=== PATIENT | male | born 1970 | race African-American/Black ===

== ENCOUNTER 2019-04-28 12:16 | Inpatient (IN) | payer BC ==
[~2019-04-28] VITALS: Ht 165.1 cm; Wt 84.8 kg
[~2019-04-28 12:16] MED LIST: CEPH-569
[2019-04-28] MEDS ORDERED: FUROSEMIDE 20MG/2ML VIAL IVP ONE (13:45)
[2019-04-28 13:59] LABS: MEAN CORPUSCULAR HEMOGLOBIN 22.9 pg (28.0-32.0); MEAN CORPUSCULAR VOLUME 76.2 fL (80.0-94.0); PLATELET 617 x1000/uL (130-400); RED BLOOD CELL COUNT 2.55 mill/uL (4.7-6.1); RED CELL DISTRIBUTION WIDTH 18.3 % (11.6-14.6)
[2019-04-28 14:03] LABS: HEMATOCRIT. 19.4 % (42.0-52.0); HEMOGLOBIN. 5.8 g/dL (14.0-18.0)
[2019-04-28 14:08] LABS: INR 1.3; PROTHROMBIN TIME 13.1 sec (9.6-11.0)
[2019-04-28 14:29] LABS: CHLORIDE 101 mEq/L (98-107)
[2019-04-28 14:39] LABS: ETHANOL BLOOD < 10 mg/dL
[2019-04-28 14:46] LABS: HEPATITIS B SURFACE AB 32.1 mIU/mL
[2019-04-28 14:49] LABS: PLATELET ESTIMATE INCREASED
[2019-04-28 14:57] LABS: HEPATITIS B SURFACE ANTIGEN NEGATIVE
[2019-04-28] MEDS ORDERED: CLONIDINE 0.1MG TABLET PO PRN (21:30)
[2019-04-28] MEDS ORDERED: DOCUSATE SODIUM 100MG CAPSULE PO PRN (21:30)
[2019-04-28] MEDS ORDERED: ONDANSETRON HCL 4MG/2ML INJ IV PRN (21:30)
[2019-04-28] MEDS ORDERED: NA PHOS,M-B/NA PHOS,DI-BA ENEMA 118ML PR PRN (21:30)
[2019-04-28 22:20] VITALS: BP 117/78
[2019-04-28 23:43] LABS: HEMOGLOBIN 6.4 g/dL (14.0-18.0); INR 1.3; PROTHROMBIN TIME 13.6 sec (9.6-11.0)
[2019-04-28 23:44] LABS: HEMATOCRIT 20.6 % (42.0-52.0)
[2019-04-29] VITALS (14 sets, daily range): BP systolic 114–129; BP diastolic 70–87
[2019-04-29] MEDS: FUROSEMIDE 40MG/4ML VIAL IV SCH ×2 (00:54→09:58)
[2019-04-29] MEDS: ZOLPIDEM TARTRATE 5MG TABLET PO PRN ×2 (00:55→21:40)
[2019-04-29] MEDS: HYDROCODONE/ACETAMINOPHEN 5/325MG TABLET PO PRN ×2 (00:55→21:41)
[2019-04-29 07:18] LABS: CHLORIDE 104 mEq/L (98-107)
[2019-04-29 10:12] LABS: HEMATOCRIT. 22.7 % (42.0-52.0); HEMOGLOBIN. 7.2 g/dL (14.0-18.0); MEAN CORPUSCULAR HEMOGLOBIN 24.6 pg (28.0-32.0); MEAN PLATELET VOLUME 7.2 fl (7.4-10.4); PLATELET 551 x1000/uL (130-400); RED BLOOD CELL COUNT 2.91 mill/uL (4.7-6.1); RED CELL DISTRIBUTION WIDTH 19.3 % (11.6-14.6)
[2019-04-29 10:23] LABS: INR 1.3; PROTHROMBIN TIME 13.1 sec (9.6-11.0)
[2019-04-29 13:24] LABS: PLATELET ESTIMATE INCREASED
[2019-04-29 16:25] LABS: HEMATOCRIT. 22.8 % (42.0-52.0); MEAN CORPUSCULAR VOLUME 78.3 fL (80.0-94.0); MEAN PLATELET VOLUME 7.5 fl (7.4-10.4); PLATELET 505 x1000/uL (130-400); RED BLOOD CELL COUNT 2.91 mill/uL (4.7-6.1); RED CELL DISTRIBUTION WIDTH 19.6 % (11.6-14.6)
[2019-04-29 19:42] LABS: PLATELET ESTIMATE INCREASED
[2019-04-29 20:09] LABS: HEMATOCRIT 25.4 % (42.0-52.0)
[2019-04-29] MEDS ORDERED: IOHEXOL-300 100 ML BOTTLE ONE (21:52)
[2019-04-30 00:05] VITALS: BP 99/78
[2019-04-30 04:00] VITALS: BP 122/83
[2019-04-30 08:00] VITALS: BP 116/83
[2019-04-30] MEDS: FERROUS SULFATE 325MG TABLET PO SCH ×3 (08:30→18:20)
[2019-04-30] MEDS: FUROSEMIDE 40MG/4ML VIAL IV SCH (08:52)
[2019-04-30] MEDS: HYDROCODONE/ACETAMINOPHEN 5/325MG TABLET PO PRN ×2 (11:22→21:23)
[2019-04-30 12:00] VITALS: BP 119/78
[2019-04-30] MEDS ORDERED: SODIUM BICARBONATE 4% (2.4MEQ) 5ML VIAL IV ONE (12:10)
[2019-04-30] MEDS ORDERED: LIDOCAINE HCL 1% 20ML VIAL (Pyxis) INJ ONE (12:10)
[2019-04-30 16:00] VITALS: BP 115/81
[2019-04-30] MEDS: ZOLPIDEM TARTRATE 5MG TABLET PO PRN (21:22)
[2019-04-30] MEDS: ACETAMINOPHEN 325MG TABLET PO PRN (21:32)
[2019-05-01] VITALS: BP 105/69
[2019-05-01 06:07] LABS: CHLORIDE 100 mEq/L (98-107)
[2019-05-01 06:16] LABS: HEMOGLOBIN. 7.2 g/dL (14.0-18.0); MEAN CORPUSCULAR HEMOGLOBIN 24.9 pg (28.0-32.0); MEAN CORPUSCULAR VOLUME 79.3 fL (80.0-94.0); MEAN PLATELET VOLUME 7.5 fl (7.4-10.4); PLATELET 451 x1000/uL (130-400); RED CELL DISTRIBUTION WIDTH 20.6 % (11.6-14.6)
[2019-05-01] MEDS ORDERED: POTASSIUM CHLORIDE 20MEQ TABLET SR PO NR (08:15)
[2019-05-01 08:46] VITALS: BP 106/52
[2019-05-01] MEDS: ACETAMINOPHEN 325MG TABLET PO PRN (08:48)
[2019-05-01] MEDS: FERROUS SULFATE 325MG TABLET PO SCH (08:48)
[2019-05-01] MEDS: FUROSEMIDE 40MG/4ML VIAL IV SCH (08:48)
[2019-05-01 10:41] VITALS: BP 106/52
[2019-05-01 10:54] LABS: NUCLEATED RED BLOOD CELLS 1 /100 WBC
[2019-05-01 10:55] LABS: PLATELET ESTIMATE INCREASED
== END 2019-05-01 12:46 | disposition home or self-care (01) | DRG 811 ==
LOC: ER 12:16 → EDBEDREQ 15:17 → ENRESERV 21:05 → 7WST 22:15
PROVIDERS: ADMIT Hospitalist; ATTEND Hospitalist
PROC: 30233N1 Transfusion of Nonautologous Red Blood Cells into Peripheral Vein, Percutaneous Approach (ICD-10-PCS; principal; 2019-04-28)
PROC: 0W9G3ZZ Drainage of Peritoneal Cavity, Percutaneous Approach (ICD-10-PCS; 2019-04-30)
DX: D50.9 Iron deficiency anemia, unspecified (principal); K85.90 Acute pancreatitis without necrosis or infection, unspecified; D68.9 Coagulation defect, unspecified; R18.8 Other ascites; J98.11 Atelectasis; C78.7 Secondary malignant neoplasm of liver and intrahepatic bile duct; C18.7 Malignant neoplasm of sigmoid colon; C78.00 Secondary malignant neoplasm of unspecified lung; C78.6 Secondary malignant neoplasm of retroperitoneum and peritoneum; D72.829 Elevated white blood cell count, unspecified; F10.21 Alcohol dependence, in remission; R16.0 Hepatomegaly, not elsewhere classified; D47.3 Essential (hemorrhagic) thrombocythemia
CPT/HCPCS: 36415; 49083; 71045; 74177; 76705; 80076; 80320; 82040; 82105; 82248; 82378; 82977; 83540; 83550; 83615; 83735; 83880; 84466; 84484; 85014; 85018; 85044; 85049; 85384; 86301; 86705; 86706; 86803; 86850; 86900; 86920; 87340; 93005; 99291; J1940; J3490; J7040; P9016; Q9967; G0480